=== PATIENT | female | born 1990 | race Two or more races ===

== ENCOUNTER 2017-10-23 22:04 | Emergency (ER) | payer MEDICAID ==
[~2017-10-23] VITALS: Ht 157.5 cm; Wt 52.2 kg
[2017-10-23 23:56] VITALS: BP 121/74
--- NOTE | 2017-10-23 23:57 | NUR ---
PT LEFT WITHOUT BEING SEEN BY MD. VSS. NAD NOTED.
== END 2017-10-23 23:58 | disposition left against medical advice (07) ==
LOC: ER 22:09
DX: K62.89 Other specified diseases of anus and rectum (principal); Z90.49 Acquired absence of other specified parts of digestive tract
CPT/HCPCS: 99281; A4663